=== PATIENT | female | born 1965 ===

== ENCOUNTER 2025-08-21 05:00 | Day surgery (SDC) | payer OTHER ==
[2025-08-14 10:07] LABS: BASO % 0.8 % (0.1-1.2); EOS # 0.08 (0.04-0.54); EOS % 0.7 % (0.7-7.0); LYMPH # 4.14 (1.18-3.74); LYMPH % 37.7 % (19.3-53.1); MEAN PLATELET VOLUME 9.60 fl (9.4-12.4); MONO # 0.92 (0.24-0.82); MONO % 8.4 % (4.7-12.5); NEUT # 5.70 (1.56-6.13); NEUT % 52.0 % (34.0-71.1); RED CELL DISTRIBUTION WIDTH 13.7 % (11.6-14.4)
[2025-08-14 10:20] VITALS: BP 146/82
[2025-08-14 10:27] LABS: URINE APPEARANCE Clear; URINE BILIRRUBIN Negative (NEGATIVE); URINE BLOOD Negative; URINE COLOR Dark Yellow; URINE GLUCOSE Negative (NEGATIVE); URINE KETONE Negative (NEGATIVE); URINE LEUKOCYTE Trace; URINE NITRATE Negative; URINE PROTEIN Negative (NEGATIVE); URINE UROBILINOGEN 0.2 E.U./dl
[2025-08-14 10:28] LABS: INR 0.94
[2025-08-14 10:32] LABS: URINE BACTERIA 60.6 uL (0.0-1933); URINE EPITHELIAL CELLS 2.7 uL (0.0-38.8); URINE RBC 3.1 uL (0.0-20.8); URINE WBC 11.5 uL (0.0-23.2)
[2025-08-14 10:51] LABS: URINE CAST 0.14 uL (0.0-1.40)
[2025-08-14 11:00] LABS: BUN CREA RATIO 42.0 (7.0-25.0); CREATININE SERUM 0.59 mg/dL (0.55-1.02); GFR 103.97; GLUCOSE FASTING 84.0 mg/dL (65-100); OSMOLALITY SERUM 290.0 MOSM/KG (275-295)
[~2025-08-21] VITALS: Ht 160 cm; Wt 102.1 kg
[~2025-08-21 05:00] MED LIST: LYRICA100 MG PO; NABUMETONE500 MG; ZESTRIL20 MG
[2025-08-21] MEDS ORDERED: CEFOXITIN SODIUM 2,000 MG VIAL IV ONE (06:22)
[2025-08-21] MEDS ORDERED: BUPIVACAINE HCL/MPF 0.5% 30ML VIAL ONE (09:45)
[2025-08-21] MEDS ORDERED: KETOROLAC TROMETHAMINE 60 MG VIAL IM ONE (09:45)
[2025-08-21] MEDS ORDERED: LIDOCAINE HCL 1%/EPINEPHRINE 20ML VIAL IJ ONE (09:45)
[2025-08-21] MEDS ORDERED: METHYLPREDNISOLONE ACETATE 80 MG/ML VIAL ONE (09:49)
[2025-08-21] MEDS ORDERED: EPINEPHRINE HCL/PF 1 MG/ML AMPUL ONE (09:50)
[2025-08-21] MEDS ORDERED: CEFAZOLIN SODIUM 1,000 MG VIAL IV ONE (10:45)
[2025-08-21] MEDS ORDERED: DUI500 PO (10:46)
[2025-08-21] MEDS ORDERED: TRAM1TAB98 PO (10:47)
[2025-08-21] MEDS ORDERED: CEFAZOLIN SODIUM 1,000 MG VIAL ONE (11:19)
[2025-08-21] MEDS ORDERED: CEFADROXIL 500 MG CAPSULE PO SCH (21:00)
== END 2025-08-21 14:10 | disposition home or self-care (01) ==
LOC: CIR.AMB 05:00
PROVIDERS: ATTEND Orthopaedic Surgery Sports Medicine
DX: M23.322 Other meniscus derangements, posterior horn of medial meniscus, left knee (principal); M17.12 Unilateral primary osteoarthritis, left knee; M23.52 Chronic instability of knee, left knee; M67.52 Plica syndrome, left knee; M22.42 Chondromalacia patellae, left knee